=== PATIENT | female | born 1935 | race African-American/Black ===

== ENCOUNTER 2016-09-29 21:28 | Observation (INO) | payer SELFPAY ==
[~2016-09-29] VITALS: Ht 152.4 cm; Wt 54.2 kg
[~2016-09-29 21:28] MED LIST: ENALAPRIL MALEAT5 MG PO; HYDROCHLOROTH12.5 M3 PO; LOSARTAN POTASS50 MG PO; METFORMIN HCL500 MG PO; ZITHROMAX Z-PA250 MG PO
[2016-09-29 22:06] LABS: MCHC 34.2 G/DL (30.0-36.0); MCV 84.9 FL (83-99); MEAN PLAT.VOLUME 10.5 uM^3 (9.5-12.4); PLATELET COUNT 212 K/uL (156-360); RBC DIS.WIDTH-CV 13.5 % (11.8-14.6); RBC DIS.WIDTH-SD 41.9 % (39-53); RED BLOOD COUNT 4.24 M/uL (3.80-5.20); WHITE BLOOD COUNT 5.5 K/uL (4.1-10.2)
[2016-09-29 22:17] LABS: CHLORIDE 104 mEq/L (99-109); POTASSIUM 4.2 mEq/L (3.7-5.4); SODIUM 139 mEq/L (136-147)
[2016-09-29 22:18] LABS: GLUCOSE 166 mg/dL (70-99)
[2016-09-29 22:20] LABS: ANION GAP 12 MEQ/L (2-14)
[2016-09-29 22:22] LABS: GFR ESTIMATE (CALCULATED) > 59 mL/min/
[2016-09-29 22:23] LABS: UREA NITROGEN (BUN) 27 mg/dL (9-23)
[2016-09-30] LABS: PROTHROMBIN TIME 10.3 (9.2-11.2); PTT 26.1 (25-32)
[2016-09-30 00:08] LABS: TOTAL BILIRUBIN 0.4 mg/dL (0.0-1.0)
[2016-09-30 00:09] LABS: ALKALINE PHOSPHATASE 48 IU/L (3-129)
[2016-09-30 00:12] LABS: DIRECT BILIRUBIN 0.1 mg/dL (0.0-0.3)
[2016-09-30 00:13] LABS: CREATINE KINASE 90 IU/L (1-294); LIPASE 55 U/L (1.0-51.0)
[2016-09-30 00:28] LABS: TROP-I INTERPRETATION NEGATIVE; TROPONIN-I 0.01 ng/mL (0.0-0.30)
[2016-09-30] MEDS ORDERED: BACLOFEN10 MG PO (01:31)
[2016-09-30] MEDS ORDERED: GABAPENTIN300 MG PO (01:31)
[2016-09-30] MEDS ORDERED: GLIPIZIDE XL10 MG PO (01:31)
[2016-09-30] MEDS ORDERED: AMLODIPINE BESYL5 MG PO (01:31)
[2016-09-30] MEDS ORDERED: METFORMIN HCL1000 MG PO (01:31)
[2016-09-30] MEDS ORDERED: LOSARTAN-HCTZ1 EAC2 PO (01:31)
[2016-09-30 03:16] LABS: ADD MIUA? NO; BILIRUBIN NEGATIVE; BLOOD NEGATIVE; COLOR COLORLESS ((YELLOW)); GLUCOSE (STRIP) 150; KETONES NEGATIVE; LEUKOCYTES NEGATIVE; NITRITE NEGATIVE; PROTEIN (STRIP) NEGATIVE; SPECIFIC GRAVITY 1.008 (1.000-1.030); UCUL ADDED? NO; UROBILINOGEN 0.2 MG/DL (0.2-1.0)
[2016-09-30 04:34] VITALS: BP 164/70
[2016-09-30 07:51] LABS: EOSINOPHIL (%) 2.1 % (0-5); EOSINOPHIL COUNT 0.1 K/uL (0-0.3); HEMATOCRIT 34.2 % (36.0-46.0); IMMATURE GRANULOCYTE (%) 0.2 % (0.0-0.7); INSTRUMENT ABS NEUTROPHIL CT 2.7 K/uL; LYMPHOCYTE COUNT 1.5 K/uL (1.0-2.8); MCH 28.8 PG (29.0-34.0); MCHC 33.9 G/DL (30.0-36.0); MCV 84.9 FL (83-99); MEAN PLAT.VOLUME 11.6 uM^3 (9.5-12.4); MONOCYTE (%) 9.3 % (3-12); MONOCYTE COUNT 0.5 K/uL (0-0.8); NEUTROPHIL (%) 56.3 % (45-76); NEUTROPHIL COUNT 2.7 K/uL (1.8-6.4); NRBC (%) 0.4 /100 WBC (0-0); PLATELET COUNT 192 K/uL (156-360); RBC DIS.WIDTH-CV 13.5 % (11.8-14.6); RBC DIS.WIDTH-SD 42.4 % (39-53); RED BLOOD COUNT 4.03 M/uL (3.80-5.20); WHITE BLOOD COUNT 4.8 K/uL (4.1-10.2)
[2016-09-30 08:06] VITALS: BP 147/68
[2016-09-30 09:07] LABS: TROP-I INTERPRETATION NEGATIVE; TROPONIN-I < 0.01 ng/mL (0.0-0.30)
[2016-09-30 09:42] LABS: ALKALINE PHOSPHATASE 45 IU/L (3-129); ANION GAP 9 MEQ/L (2-14); CHLORIDE 107 MEQ/L (99-109); GFR ESTIMATE (CALCULATED) > 59 mL/min/; GLUCOSE 188 mg/dL (70-99); POTASSIUM 4.2 MEQ/L (3.7-5.4); SAMPLE HEMOLYSIS CHECK 0; SAMPLE ICTERIC CHECK 0; SAMPLE LIPEMIA CHECK 0; SODIUM 140 MEQ/L (136-147); TOTAL BILIRUBIN 0.3 MG/DL (0.0-1.0); UREA NITROGEN (BUN) 20 mg/dL (9-23)
[2016-09-30 11:30] VITALS: BP 128/71
[2016-09-30 12:26] LABS: POINT-OF-CARE METER ID UU13113831
[2016-09-30 14:52] LABS: TROP-I INTERPRETATION NEGATIVE; TROPONIN-I < 0.01 ng/mL (0.0-0.30)
[2016-09-30 17:01] LABS: POINT-OF-CARE METER ID UU13113831
[2016-09-30 20:57] VITALS: BP 151/73
[2016-09-30 20:59] VITALS: BP 152/74
[2016-09-30 21:33] LABS: POINT-OF-CARE METER ID UU13113831
[2016-10-01 00:54] VITALS: BP 165/74
[2016-10-01 04:34] VITALS: BP 139/63
[2016-10-01 07:34] VITALS: BP 151/66
[2016-10-01 11:43] VITALS: BP 114/56
[2016-10-01] MEDS ORDERED: ASPIR 8181 M1 PO (11:49)
[2016-10-01 12:31] LABS: POINT-OF-CARE METER ID UU13113700
== END 2016-10-01 13:52 | disposition home or self-care (01) ==
LOC: EME 21:28 → 5WEST 09-30 03:14 → EDOF 09-30 03:14 → 5WEST 09-30 04:24
PROVIDERS: Emergency Medicine; Hospitalist; Internal Medicine
DX: R07.89 Other chest pain (principal); R55 Syncope and collapse; R51 Headache; R47.81 Slurred speech; R42 Dizziness and giddiness; N17.9 Acute kidney failure, unspecified; R26.2 Difficulty in walking, not elsewhere classified; I10 Essential (primary) hypertension; E11.9 Type 2 diabetes mellitus without complications
CPT/HCPCS: 70450; 71020; 72148; 80048; 80053; 80076; 81003; 82550; 82948; 83690; 83880; 84484; 85025; 85027; 85610; 85730; 93005; 93306; 93880; 99281; 99285; G0378; G8978 GP CJ; G8979 GP CI; G8987 GO CJ; G8988 GO CH; J1644; J1815; J7030

== ENCOUNTER → 2017-07-28 | Outpatient (CLI) | payer OTHER ==
[~2017-07-28] MED LIST changes: +AMLODIPINE BESYL5 MG PO; +ASPIR 8181 M1 PO; +BACLOFEN10 MG PO; +GABAPENTIN300 MG PO; +GLIPIZIDE XL10 MG PO; +LOSARTAN-HCTZ1 EAC2 PO; +METFORMIN HCL1000 MG PO
== END | disposition home or self-care (01) ==
LOC: RAD 13:08
DX: Z01.818 Encounter for other preprocedural examination (principal); H26.9 Unspecified cataract
CPT/HCPCS: 71046

== ENCOUNTER 2017-10-09 16:16 | Emergency (ER) | payer OTHER ==
[~2017-10-09] VITALS: Ht 162.6 cm; Wt 66.4 kg
[2017-10-09 17:08] LABS: HEMATOCRIT 34.2 % (36.0-46.0); HEMOGLOBIN 11.7 G/DL (11.9-15.5); MCH 27.9 PG (29.0-34.0); MCHC 34.2 G/DL (30.0-36.0); MCV 81.4 FL (83-99); PLATELET COUNT 235 K/uL (156-360); RBC DIS.WIDTH-CV 13.6 % (11.8-14.6); WHITE BLOOD COUNT 5.5 K/uL (4.1-10.2)
[2017-10-09 17:24] LABS: CHLORIDE 104 mEq/L (99-109); POTASSIUM 4.9 mEq/L (3.7-5.4); SODIUM 139 mEq/L (136-147)
[2017-10-09 17:25] LABS: GLUCOSE 227 mg/dL (70-99)
[2017-10-09 17:29] LABS: CREATININE 1.2 mg/dL (0.6-1.3); GFR ESTIMATE (CALCULATED) 55 mL/min/
[2017-10-09 17:30] LABS: TROP-I INTERPRETATION NEGATIVE; TROPONIN-I < 0.01 ng/mL (0.0-0.30); UREA NITROGEN (BUN) 20 mg/dL (9-23)
[2017-10-09] MEDS ORDERED: ZITHROMAX Z-PA250 MG PO (18:05)
[2017-10-09 18:49] VITALS: BP 167/85
== END 2017-10-09 18:51 | disposition home or self-care (01) ==
LOC: EME 16:16
DX: J20.9 Acute bronchitis, unspecified (principal); R91.1 Solitary pulmonary nodule; J06.9 Acute upper respiratory infection, unspecified; I11.0 Hypertensive heart disease with heart failure; I50.9 Heart failure, unspecified; E11.65 Type 2 diabetes mellitus with hyperglycemia; Z79.84 Long term (current) use of oral hypoglycemic drugs
CPT/HCPCS: 71046; 80048; 82948; 83880; 84484; 85027; 93005; 99281; 99284

== ENCOUNTER → 2017-10-19 | Outpatient (CLI) | payer OTHER | END | disposition home or self-care (01) | LOC: RAD 14:00 | DX: J98.4 Other disorders of lung (principal) | CPT/HCPCS: 71260 ==